=== PATIENT | female | born 1975 | race Caucasian/White ===

== ENCOUNTER → 2017-09-22 | Emergency (ER) | payer OTHER ==
[~2017-09-22] VITALS: Ht 167.6 cm; Wt 95.3 kg
[~2017-09-22] MED LIST: INTEGRA PLUS C1 EACH PO; MECLIZINE HCL25 MG PO; NORFLEX100MG PO; PANTOPRAZOLE SO20 MG PO
== END | disposition home or self-care (01) ==
LOC: ER 16:31 → EMR PED 16:34
DX: S40.011A Contusion of right shoulder, initial encounter (principal); S16.1XXA Strain of muscle, fascia and tendon at neck level, initial encounter; W50.0XXA Accidental hit or strike by another person, initial encounter; Y93.89 Activity, other specified; Y92.89 Other specified places as the place of occurrence of the external cause; Y99.8 Other external cause status

== ENCOUNTER 2018-07-07 05:20 | Emergency (ER) | payer OTHER ==
[~2018-07-07] VITALS: Ht 172.7 cm
[2018-07-07] MEDS ORDERED: ANTIVERT PO (05:38)
[2018-07-07] MEDS ORDERED: MEDROLPACK PO (11:27)
[2018-07-07] MEDS ORDERED: ZOFRAN ODT4 MG PO (11:27)
== END 2018-07-07 12:04 | disposition home or self-care (01) ==
LOC: ER 05:20
DX: H81.13 Benign paroxysmal vertigo, bilateral (principal); K29.70 Gastritis, unspecified, without bleeding; R53.1 Weakness

== ENCOUNTER 2018-07-09 08:01 | Emergency (ER) | payer OTHER ==
[~2018-07-09] VITALS: Ht 167.6 cm; Wt 108.9 kg
[~2018-07-09 08:01] MED LIST changes: +ANTIVERT PO; +MEDROLPACK PO; +ZOFRAN ODT4 MG PO
== END 2018-07-09 17:39 | disposition home or self-care (01) ==
LOC: ER 08:01
DX: R42 Dizziness and giddiness (principal); R51 Headache; M54.2 Cervicalgia

== ENCOUNTER 2022-09-22 05:50 | Inpatient (IN) | payer OTHER ==
[~2022-09-22] VITALS: Ht 167.6 cm; Wt 117.9 kg
[2022-09-26] MEDS ORDERED: PROVERA PO (14:00)
== END 2022-09-26 14:17 | disposition home or self-care (01) | DRG 812 ==
LOC: ER 05:50 → OB/GYN 09-23 00:41
PROVIDERS: ADMIT Student in an Organized Health Care Education/Training Program; ATTEND Student in an Organized Health Care Education/Training Program
PROC: 30233N1 Transfusion of Nonautologous Red Blood Cells into Peripheral Vein, Percutaneous Approach (ICD-10-PCS; principal; 2022-09-23)
DX: D50.0 Iron deficiency anemia secondary to blood loss (chronic) (principal); Z20.822 Contact with and (suspected) exposure to COVID-19